=== PATIENT | male | born 1950 | race Caucasian/White ===

== ENCOUNTER → 2017-04-28 | Outpatient (CLI) | payer MEDICARE, OTHER ==
[~2017-04-28] VITALS: Ht 175.3 cm; Wt 92.0 kg
[~2017-04-28] MED LIST: AMIT25 PO; ARIP1TAB5 PO; BUPR300T PO; CHLORHEXIDINE GLUCONATE 2 % 1 PACK (2 CLOTHS) TOPICAL PRN; DOXA1TAB43 PO; ENAL10TA PO; EPINEPHrine HCL PF/SF (1:1000) 1 MG/ML AMP I-OCULAR ONE; EPINEPHrine-Lidocaine/BSS (PF/SF) 4-120 mg/16 mL OPTH SYR RIGHT EYE ONE; ESCI10TA PO; GABA600T PO; GLYB5TAB3 PO; HYALURONIDASE/LIDOCAINE/BUPIVACAINE 5 ML SYR RIGHT EYE ONE; HYDR-3583 PO; LACTATED RINGER'S 1000 ML IV PRN; LEVO500T8 PO; METF1000 PO; METOPROLOL TARTRATE 25 MG TAB PO PRN; MS C15TA7 PO; POVIDONE IODINE 5% (ANTISEPSIS KIT) 4 APPLICATIONS EACH NARE PRN; PROPOFOL 200 MG/20 ML AMP ONE; SODIUM CHLORID 0.9% 500 ML IV PRN; TOBRAMYCIN/DEXAMETHASONE OPTH OINT 3.5 GM TUBE ONE; TRAZ100T10 PO; VISCOAT OPHT IRRIG SOLN 0.75 ML SYRINGE ONE; ZOCO20TA PO
[2017-04-28] MEDS: TROPICAMIDE 1% OPHT SOLN 15 ML BTL RIGHT EYE SCH ×3 (09:15→09:25)
[2017-04-28] MEDS: PHENYLEPHRINE HCL 10% OPTH SOLN 5 ML BTL RIGHT EYE SCH ×3 (09:15→09:25)
[2017-04-28] MEDS: CYCLOPENTOLATE HCL 1% OPHT SOLN 2 ML BTL RIGHT EYE SCH ×3 (09:15→09:25)
[2017-04-28] MEDS: TETRACAINE 0.5% OPTH SOLN 4 ML BTL RIGHT EYE SCH ×3 (09:15→09:25)
[2017-04-28 09:30] VITALS: PULSE 62
[2017-04-28 09:50] VITALS: PULSE 63
[2017-04-28 10:50] VITALS: BP 155/93; PULSE 60; RESP 16; TEMP 97.4; O2SAT 95
--- NOTE | 2017-04-28 10:52 | PD.OP ---
Operative Report Preoperative Diagnosis: (1) Posterior subcapsular age-related cataract of right eye Postoperative Diagnosis: (1) Pseudophakia of right eye Procedure: phacoemulsification and intraocular lens implant right eye Anesthesia: retrobulbar block, MAC Surgeon: Annita Tena Mat Tester(s): none Operation and Findings: Patient was consented for surgery, given a retrobulbar block by anesthesia, and taken back to the operating room. He was prepped and draped in the usual sterile fashion for ophthalmic surgery. A wire lid speculum was placed in the right eye. A paracentesis incision was created at the 11 o'clock position on the limbus. Vision blue dye and viscoelastic was injected into the anterior chamber. The main incision was created at the 8 o'clock position on the limbus with a 2.4 mm keratome. A continuous curvilinear capsulorrhexis was made on the anterior lens capsule. Hydrodissection was used to separate the lens from the capsule. Phacoemulsification was used to remove the lens nucleus material. Irrigation and aspiration was used to remove the remaining cortical material. The lens implant ([id number]) was placed in the capsular bag. Viscoelastic was removed with irrigation and aspiration. The incisions were irrigated and found to be watertight. Tobradex ointment, a patch, and shield were placed on the right eye. The patient was sent to PACU in stable condition. Annita Tena MD Apr 28, 2017 10:52
== END ==
LOC: PHSDC 08:17
PROVIDERS: ATTEND Ophthalmology
DX: H25.041 Posterior subcapsular polar age-related cataract, right eye (principal); Z96.1 Presence of intraocular lens
CPT/HCPCS: 00142; 66984; J0171; J7040; V2632

== ENCOUNTER 2017-05-09 13:49 | Emergency (ER) | payer MEDICARE, OTHER ==
[~2017-05-09] VITALS: Ht 175.3 cm; Wt 92.0 kg
[~2017-05-09 13:49] MED LIST changes: -AMIT25 PO; -ARIP1TAB5 PO; -CHLORHEXIDINE GLUCONATE 2 % 1 PACK (2 CLOTHS) TOPICAL PRN; -DOXA1TAB43 PO; -EPINEPHrine HCL PF/SF (1:1000) 1 MG/ML AMP I-OCULAR ONE; -EPINEPHrine-Lidocaine/BSS (PF/SF) 4-120 mg/16 mL OPTH SYR RIGHT EYE ONE; -ESCI10TA PO; -GABA600T PO; -HYALURONIDASE/LIDOCAINE/BUPIVACAINE 5 ML SYR RIGHT EYE ONE; -LACTATED RINGER'S 1000 ML IV PRN; -LEVO500T8 PO; -METOPROLOL TARTRATE 25 MG TAB PO PRN; -MS C15TA7 PO; -POVIDONE IODINE 5% (ANTISEPSIS KIT) 4 APPLICATIONS EACH NARE PRN; -PROPOFOL 200 MG/20 ML AMP ONE; -SODIUM CHLORID 0.9% 500 ML IV PRN; -TOBRAMYCIN/DEXAMETHASONE OPTH OINT 3.5 GM TUBE ONE; -VISCOAT OPHT IRRIG SOLN 0.75 ML SYRINGE ONE
[2017-05-09 13:59] VITALS: BP 136/63; PULSE 65; RESP 20; TEMP 98.4; O2SAT 91
[2017-05-09] MEDS ORDERED: SODIUM CHLORIDE 0.9% FLUSH 10 ML FLUSH IV FLUSH PRN (14:30)
[2017-05-09 14:33] VITALS: RESP 20; O2SAT 92
--- NOTE | 2017-05-09 14:42 | PD ---
HPI Chief Complaint: General Weakness Time Seen by Provider: 14:12 Travel History International Travel<30 days: No Contact w/Intl Traveler<30days: No Traveled to known affect area: No History of Present Illness HPI Patient has had a progressive weakness that has been ongoing for the past 3-4 months. Patient complains of increased frequency and urgency and the majority of the time he is unable to even make it to the bathroom before soiling himself , today the patient had a mechanical trip and fall on his way to the bathroom.... This has been discussed at length with Dr. Camacho and Dr. Spears , who are currently evaluating. Patient denies any associated factors such as loss of consciousness, fever, rash, headache, chest pain, back pain, abdominal pain, cough, runny nose or sore throat. Patient denies any alleviating or aggravating factors. Primary care physicians Carol Spears Guard Driver Dr. Jose Antonio camacho urologist No known drug allergy Past medical history significant for TN with stent, hyperlipidemia, bipolar disease, diabetes, hypertension PFSH Past Medical History Anxiety: Yes Depression: Yes Cancer: No Cardiovascular Problems: Yes (TN, STENTS;HYPERLIPIDEMIA) High Cholesterol: Yes Diabetes: Yes Patient Takes Glucophage: Yes Diminished Hearing: No Endocrine: Yes Gastrointestinal Disorders: Yes (GERD) Genitourinary: Yes (BPH) Hepatitis: Yes (B) Hiatal Hernia: No Hypertension: Yes Immune Disorder: No Musculoskeletal: Yes (NECK PAIN, DDD) Neurologic: Yes (NUMBNESS RIGHT FINGERS;TOURETTES SYNDROME) Psychiatric: Yes (DEPRESSION; BIPOLAR;ADHA;) Reproductive: No Respiratory: No Myocardial Infarction: Yes (X2) Thyroid Disease: No Tetanus Vaccination: < 5 Years Influenza Vaccination: No Past Surgical History Abdominal Surgery: Yes (RIGHT ING. HERNIA REP) AICD: No Cardiac Surgery: Yes (2 x Angioplasty STENT X1) Ear Surgery: No Endocrine Surgery: No Eye Surgery: No Genitourinary Surgery: No Joint Replacement: No Oral Surgery: Yes (T & A) Pacemaker: No Thoracic Surgery: No Tonsillectomy: Yes Other Surgery: Yes (Hernia Surgery) Social History Alcohol Use: No Tobacco Use: Yes (02/25 PPD) Substance Use: No (HX HEROIN USE) Allergies-Medications (Allergen,Severity, Reaction): Coded Allergies: Influenza Virus Vaccines (Unverified Allergy, Unknown, 04/28/17) Reported Meds & Prescriptions Reported Meds & Active Scripts Active Reported Trazodone (Trazodone HCl) 100 Mg Tablet 100 Mg PO HS Glyburide 5 Mg Tab 5 Mg PO DAILY Take with meals at the same time each day Hydrocodone-Acetamin 10-325 mg (Hydrocodone/Acetaminophen) 10 Mg-325 Mg Tablet 1 Tab PO Q6HR Zocor (Simvastatin) 20 Mg Tab 20 Mg PO DAILY Metformin (Metformin HCl) 1,000 Mg Tab 1,000 Mg PO DAILY With a meal Bupropion HCl ER 24 HR (Bupropion HCl) 300 Mg Tab 300 Mg PO DAILY Enalapril (Enalapril Maleate) 10 Mg Tab 10 Mg PO DAILY Review of Systems General / Constitutional: No: Fever Eyes: No: Visual changes HENT: No: Headaches Cardiovascular: No: Chest Pain or Discomfort Respiratory: No: Shortness of Breath Gastrointestinal: No: Abdominal Pain Genitourinary: Positive: Frequency, Nocturia Musculoskeletal: No: Pain Skin: No Rash Neurologic: Positive: Weakness (Generalized) Psychiatric: No: Depression Endocrine: No: Polydipsia Hematologic/Lymphatic: No: Easy Bruising Physical Exam Narrative GENERAL: SKIN: Warm and dry. HEAD: Atraumatic. Normocephalic. EYES: Pupils equal and round. No scleral icterus. No injection or drainage. ENT: No nasal bleeding or discharge. Mucous membranes pink and moist. NECK: Trachea midline. No JVD. CARDIOVASCULAR: Regular rate and rhythm. RESPIRATORY: No accessory muscle use. Clear to auscultation. Breath sounds equal bilaterally. GASTROINTESTINAL: Abdomen soft, non-tender, nondistended. MUSCULOSKELETAL: Extremities without clubbing, cyanosis, or edema. No obvious deformities. NEUROLOGICAL: Awake and alert. No obvious cranial nerve deficits. Motor grossly within normal limits. Five out of 5 muscle strength in the arms and legs. Normal speech. PSYCHIATRIC: Appropriate mood and affect; insight and judgment normal. Data Data Last Documented VS Vital Signs Date Time Temp Pulse Resp B/P (MAP) Pulse Ox O2 Delivery O2 Flow Rate FiO2 05/09/17 18:20 54 20 137/72 (93) 95 05/09/17 16:10 Room Air 05/09/17 13:59 98.4 Orders Orders Electrocardiogram (05/09/17 14:30) Complete Blood Count With Diff (05/09/17 14:30) Comprehensive Metabolic Panel (05/09/17 14:30) Prothrombin Time / Inr (Pt) (05/09/17 14:30) Act Partial Throm Time (Ptt) (05/09/17 14:30) Troponin I (05/09/17 14:30) Thyroid Stimulating Hormone (05/09/17 14:30) Chest, Single Ap (05/09/17 14:30) Ct Brain W/O Iv Contrast(Rout) (05/09/17 14:30) Blood Glucose (05/09/17 14:30) Ecg Monitoring (05/09/17 14:30) Iv Access Insert/Monitor (05/09/17 14:30) Oximetry (05/09/17 14:30) Sodium Chloride 0.9% Flush (Ns Flush) (05/09/17 14:30) Alcohol (Ethanol) (05/09/17 14:30) Tylenol (Acetaminophen) (05/09/17 14:30) Salicylates (Aspirin) (05/09/17 14:30) Ed Discharge Order (05/09/17 17:02) Labs Laboratory Tests Test 05/09/17 14:30 White Blood Count 7.9 TH/MM3 Red Blood Count 4.34 MIL/MM3 Hemoglobin 13.7 GM/DL Hematocrit 39.2 % Mean Corpuscular Volume 90.2 FL Mean Corpuscular Hemoglobin 31.5 PG Mean Corpuscular Hemoglobin Concent 34.9 % Red Cell Distribution Width 13.9 % Platelet Count 142 TH/MM3 Mean Platelet Volume 8.8 FL Neutrophils (%) (Auto) 70.5 % Lymphocytes (%) (Auto) 17.2 % Monocytes (%) (Auto) 7.9 % Eosinophils (%) (Auto) 3.8 % Basophils (%) (Auto) 0.6 % Neutrophils # (Auto) 5.6 TH/MM3 Lymphocytes # (Auto) 1.4 TH/MM3 Monocytes # (Auto) 0.6 TH/MM3 Eosinophils # (Auto) 0.3 TH/MM3 Basophils # (Auto) 0.0 TH/MM3 CBC Comment DIFF FINAL Differential Comment Prothrombin Time 9.8 SEC Prothromb Time International Ratio 1.0 RATIO Activated Partial Thromboplast Time 26.0 SEC Blood Urea Nitrogen 14 MG/DL Creatinine 1.01 MG/DL Random Glucose 230 MG/DL Total Protein 6.9 GM/DL Albumin 3.3 GM/DL Calcium Level 8.9 MG/DL Alkaline Phosphatase 52 U/L Aspartate Amino Transf (AST/SGOT) 27 U/L Alanine Aminotransferase (ALT/SGPT) 31 U/L Total Bilirubin 0.3 MG/DL Sodium Level 137 MEQ/L Potassium Level 4.6 MEQ/L Chloride Level 101 MEQ/L Carbon Dioxide Level 26.1 MEQ/L Anion Gap 10 MEQ/L Estimat Glomerular Filtration Rate 74 ML/MIN Troponin I LESS THAN 0.02 NG/ML Thyroid Stimulating Hormone 3rd Gen 1.370 uIU/ML Salicylates Level LESS THAN 1.7 MG/DL Acetaminophen Level LESS THAN 2.0 MCG/ML Ethyl Alcohol Level LESS THAN 3 MG/DL MDM Medical Decision Making Medical Screen Exam Complete: Yes Emergency Medical Condition: Yes Medical Record Reviewed: Yes Interpretation(s) EKG shows motion artifact, normal sinus rhythm, 60 bpm, normal intervals, and no evidence of any STEMI pattern. Differential Diagnosis UTI versus anemia versus dehydration versus electrolyte imbalance versus atypical TN Narrative Course CBC has no evidence of any leukocytosis, anemia, or any abnormal platelet count. CMP is within normal limits and without any evidence of electrolyte electrolyte abnormalities. Normal kidney/liver/pancreas function Coagulation profile is within normal limits After 2-1/2 hours in the emergency department the patient has not provided any urine sample for urinalysis. The patient will be asked to submit a urine sample for testing however will await culture results before treating. Diagnosis Primary Impression: Urinary frequency Patient Instructions: General Instructions, Urinary Incontinence (ED) Additional Instructions: please see dr camacho for further treatment and care. Disposition: 01 DISCHARGE HOME Condition: Stable Gregory Gonzalez MD May 09, 2017 14:42
--- NOTE | 2017-05-09 14:47 | RADRPT ---
EXAM DATE/TIME: 05/09/2017 14:36 [facility] COMPARISON: No previous studies available for comparison. INDICATIONS : Syncope MEDICAL HISTORY : Cardiovascular disease. SURGICAL HISTORY : Coronary artery stent. Fusion, cervical. ENCOUNTER: Initial ACUITY: 1 day PAIN SCORE: 0/10 LOCATION: chest FINDINGS: A single view of the chest demonstrates the lungs to be symmetrically aerated without evidence of mas s, infiltrate or effusion. The cardiomediastinal contours are unremarkable. Osseous structures are intact. Cervical fusion hardware identified within the lower cervical spine. CONCLUSION: No acute disease. Gina Gee MD on May 09, 2017 at 14:44 Board Certified Radiologist. This report was verified electronically.
[2017-05-09 15:20] LABS: AUTOMATED NEUTROPHIL # 5.6 TH/MM3 (1.8-7.7); BASOPHIL % 0.6 % (0.0-2.0); EOSINOPHIL # 0.3 TH/MM3 (0-0.4); EOSINOPHIL % 3.8 % (0.0-4.0); HEMATOCRIT 39.2 % (39.0-51.0); HEMOGLOBIN 13.7 GM/DL (13.0-17.0); LYMPH % 17.2 % (9.0-44.0); LYMPHOCYTE # 1.4 TH/MM3 (1.0-4.8); MEAN CELL VOLUME 90.2 FL (80.0-100.0); MEAN CORPUSCULAR HEMOGLOBIN 31.5 PG (27.0-34.0); MEAN CORPUSCULAR HGB CONC 34.9 % (32.0-36.0); MEAN PLATELET VOLUME 8.8 FL (7.0-11.0); MONO % 7.9 % (0.0-8.0); MONOCYTE # 0.6 TH/MM3 (0-0.9); NEUT % 70.5 % (16.0-70.0); PLATELET COUNT 142 TH/MM3 (150-450); RED BLOOD COUNT 4.34 MIL/MM3 (4.50-5.90); RED CELL DISTRIBUTION WIDTH 13.9 % (11.6-17.2); WHITE BLOOD COUNT 7.9 TH/MM3 (4.0-11.0)
--- NOTE | 2017-05-09 15:24 | RADRPT ---
EXAM DATE/TIME: 05/09/2017 15:01 [facility] COMPARISON: No previous studies available for comparison. INDICATIONS : Dizziness and unsteady gait today. RADIATION DOSE: 47.21 CTDIvol (mGy) MEDICAL HISTORY : Myocardial infarction. Hepatitis B. Hypertension.diabetes SURGICAL HISTORY : Angioplasty. ENCOUNTER: Initial ACUITY: 1 day PAIN SCALE: 0/10 LOCATION: Bilateral head TECHNIQUE: Multiple contiguous axial images were obtained of the head. Using automated exposure control and adj ustment of the mA and/or kV according to patient size, radiation dose was kept as low as reasonably a chievable to obtain optimal diagnostic quality images. DICOM format image data is available electro nically for review and comparison. FINDINGS: CEREBRUM: The ventricles are normal for age. No evidence of midline shift, mass lesion, hemorrhage or acute in farction. No extra-axial fluid collections are seen. POSTERIOR FOSSA: The cerebellum and brainstem are intact. The 4th ventricle is midline. The cerebellopontine angle i s unremarkable. EXTRACRANIAL: The visualized portion of the orbits is intact. SKULL: The calvaria is intact. No evidence of skull fracture. CONCLUSION: 1. No acute intercranial abnormality identified. Nilson Escobar MD on May 09, 2017 at 15:20 Board Certified Radiologist. This report was verified electronically.
[2017-05-09 15:29] LABS: PROTHROMBIN TIME - PATIENT 9.8 SEC (9.8-11.6)
[2017-05-09 15:37] LABS: ALKALINE PHOSPHATASE 52 U/L (45-117); ALT (GPT) 31 U/L (12-78); TOTAL BILIRUBIN ADULT 0.3 MG/DL (0.2-1.0); TOTAL PROTEIN 6.9 GM/DL (6.4-8.2); TROPONIN I LESS THAN 0.02 NG/ML (0.02-0.05)
[2017-05-09 15:44] LABS: ALBUMIN 3.3 GM/DL (3.4-5.0); AST (GOT) 27 U/L (15-37); BICARBONATE 26.1 MEQ/L (21.0-32.0); BLOOD UREA NITROGEN 14 MG/DL (7-18); CALCIUM 8.9 MG/DL (8.5-10.1); CHLORIDE 101 MEQ/L (98-107); CREATININE 1.01 MG/DL (0.60-1.30); GLOMERULAR FILTRATION RATE 74 ML/MIN (>89); GLUCOSE,RANDOM 230 MG/DL (74-106); SODIUM (NA) 137 MEQ/L (136-145)
[2017-05-09 15:45] LABS: ACETAMINOPHEN LESS THAN 2.0 MCG/ML (10.0-30.0)
[2017-05-09 16:10] VITALS: BP 137/66; PULSE 54; RESP 16; O2SAT 98
[2017-05-09 18:20] VITALS: BP 137/72
--- NOTE | 2017-05-10 10:36 | EKG ---
Date Performed: 05/09/2017 Time Performed: 14:46:32 PTAGE: 67 years EKG: ECTOPIC ATRIAL RHYTHM INFERIOR MYOCARDIAL INFARCTION ANTEROSEPTAL MYOCARDIAL INFARCTION ABN ORMAL ECG Compared to PREVIOUS TRACING the patient is now in an ectopic rhythm PREVIOUS TRACIN10/28/2010 11 .29 DOCTOR: Paola Dubon Interpretating Date/Time 05/10/2017 10:34:58
== END 2017-05-09 18:21 | disposition home or self-care (01) ==
LOC: NEPD 13:49
DX: N40.1 Benign prostatic hyperplasia with lower urinary tract symptoms (principal); R35.0 Frequency of micturition; E11.9 Type 2 diabetes mellitus without complications; E78.5 Hyperlipidemia, unspecified; F17.200 Nicotine dependence, unspecified, uncomplicated; I10 Essential (primary) hypertension; I25.2 Old myocardial infarction; R94.31 Abnormal electrocardiogram [ECG] [EKG]; Z79.84 Long term (current) use of oral hypoglycemic drugs; Z79.899 Other long term (current) drug therapy
CPT/HCPCS: 70450; 71045; 80053; 80307; 84443; 84484; 85025; 85610; 85730; 93005; 99285

== ENCOUNTER → 2017-06-21 | Outpatient (CLI) | payer MEDICARE, OTHER ==
[~2017-06-21] MED LIST changes: +BUPR150CR PO
[2017-06-21 09:36] LABS: AUTOMATED NEUTROPHIL # 4.7 TH/MM3 (1.8-7.7); BASOPHIL % 0.6 % (0.0-2.0); EOSINOPHIL # 0.3 TH/MM3 (0-0.4); EOSINOPHIL % 4.1 % (0.0-4.0); HEMOGLOBIN 14.9 GM/DL (13.0-17.0); LYMPH % 21.4 % (9.0-44.0); LYMPHOCYTE # 1.5 TH/MM3 (1.0-4.8); MEAN CELL VOLUME 91.2 FL (80.0-100.0); MEAN CORPUSCULAR HEMOGLOBIN 31.7 PG (27.0-34.0); MEAN CORPUSCULAR HGB CONC 34.7 % (32.0-36.0); MEAN PLATELET VOLUME 8.4 FL (7.0-11.0); MONO % 8.1 % (0.0-8.0); MONOCYTE # 0.6 TH/MM3 (0-0.9); NEUT % 65.8 % (16.0-70.0); PLATELET COUNT 149 TH/MM3 (150-450); RED BLOOD COUNT 4.72 MIL/MM3 (4.50-5.90); RED CELL DISTRIBUTION WIDTH 13.9 % (11.6-17.2); WHITE BLOOD COUNT 7.1 TH/MM3 (4.0-11.0)
[2017-06-21 09:44] LABS: PROTHROMBIN TIME - PATIENT 10.3 SEC (9.8-11.6)
[2017-06-21 10:02] LABS: BICARBONATE 27.1 MEQ/L (21.0-32.0); CALCIUM 9.6 MG/DL (8.5-10.1); CREATININE 1.13 MG/DL (0.60-1.30)
--- NOTE | 2017-06-21 10:44 | RADRPT ---
EXAM DATE/TIME: 06/21/2017 10:27 [facility] COMPARISON: No previous studies available for comparison. INDICATIONS : Evaluate for pneumonia, pneumothorax and communicable diseases. Pre-op for shunt placement. MEDICAL HISTORY : Cardiovascular disease. SURGICAL HISTORY : Coronary artery stent. Fusion, cervical. ENCOUNTER: Initial ACUITY: 1 day PAIN SCORE: 0/10 LOCATION: Bilateral chest FINDINGS: PA and lateral views of the chest demonstrate the lungs to be symmetrically aerated without evidence of mass, infiltrate or effusion. The cardiomediastinal contours are unremarkable. Osseous structure s are intact. CONCLUSION: No acute cardiopulmonary disease. Dirk Cornelius MD on June 21, 2017 at 10:42 Board Certified Radiologist. This report was verified electronically.
[2017-06-21 10:46] LABS: BILIRUBIN, URINE NEG (NEG); BLOOD, URINE NEG (NEG); GLUCOSE,URINE NEG (NEG); HYALINE CAST, URINE 2 /lpf (RARE); KETONE, URINE NEG (NEG); MUCUS URINE FEW /lpf (OCC); NITRITE,URINE NEG (NEG); PH, URINE 5.5 (5.0-8.5); URINE COLOR YELLOW (YELLW/STRAW); URINE LEUKOCYTE ESTERASE NEG (NEG)
--- NOTE | 2017-06-21 20:40 | EKG ---
Date Performed: 06/21/2017 Time Performed: 09:21:27 PTAGE: 67 years EKG: ECTOPIC ATRIAL BRADYCARDIA INFERIOR MYOCARDIAL INFARCTION, PROBABLY OLD ANTEROSEPTAL MYOCAR DIAL INFARCTION, OF INDETERMINATE AGE ABNORMAL ECG NO PREVIOUS TRACING DOCTOR: Karthik Morgan Interpretating Date/Time 06/21/2017 20:39:51
== END ==
LOC: CPRE 08:15
PROVIDERS: ATTEND Neurological Surgery
DX: Z01.812 Encounter for preprocedural laboratory examination (principal); Z01.811 Encounter for preprocedural respiratory examination; Z01.810 Encounter for preprocedural cardiovascular examination; Z01.89 Encounter for other specified special examinations; R94.31 Abnormal electrocardiogram [ECG] [EKG]
CPT/HCPCS: 36415; 71046; 80048; 81001; 85025; 85610; 85730; 93005

== ENCOUNTER 2017-07-27 14:36 | Observation (INO) | payer MEDICARE, OTHER ==
[~2017-07-27] VITALS: Ht 175.3 cm; Wt 87.4 kg
[~2017-07-27 14:36] MED LIST changes: -BUPR300T PO
[2017-07-27 14:47] VITALS: BP 157/79; PULSE 67; RESP 16; TEMP 98.5; O2SAT 95
--- NOTE | 2017-07-27 14:57 | PD ---
HPI Chief Complaint: Hypertension Time Seen by Provider: 14:56 Travel History International Travel<30 days: No Contact w/Intl Traveler<30days: No Traveled to known affect area: No History of Present Illness HPI 67-year-old male came to the emergency room with history of confusion yesterday. The is giving the history of his confusion state yesterday since patient says he does not recall much of it. says it started in the morning and stayed till 8:30 PM when he went to bed and slept all night. When he woke up this morning at 9:30 AM he seemed more with it although he still appears to be little bit confused as per the and the neighbor. Patient had a BULK INTAKE WORKER shunt put in 1 month ago. The neurosurgeon is Dr. Wilson. They called his office this morning and this afternoon when they heard back from the nurse they were asked to come to the emergency room. says that his blood pressure was running a little bit high at 170s systolic. No history of vomiting or diarrhea. No history of fever or chills. Patient's vital signs are stable in the triage here. Currently patient is awake and answering questions appropriately. Patient denies of any headache. PFSH Past Medical History Narrative Medical List of his past medical, surgical, social and family history is reviewed from the nursing note Anxiety: Yes Depression: Yes Cancer: No Cardiovascular Problems: Yes High Cholesterol: Yes Diabetes: Yes Diminished Hearing: No Endocrine: Yes Gastrointestinal Disorders: Yes (GERD) Genitourinary: Yes (BPH) Hepatitis: Yes (B) Hiatal Hernia: No Hypertension: Yes Immune Disorder: No Musculoskeletal: Yes (NECK PAIN, DDD) Neurologic: Yes (NUMBNESS RIGHT FINGERS) Psychiatric: Yes (BIPOLAR) Reproductive: No Respiratory: No Myocardial Infarction: Yes (X2) Thyroid Disease: No Past Surgical History Abdominal Surgery: Yes (RIGHT INGUINAL HERNIA REPAIR) AICD: No Body Medical Devices: CARDIAC STENT, Cardiac Surgery: Yes (ANGIOPLASTY/ STENT X1) Ear Surgery: No Endocrine Surgery: No Eye Surgery: Yes (CATARACT R EYE) Genitourinary Surgery: No Joint Replacement: No Oral Surgery: Yes (T & A) Pacemaker: No Thoracic Surgery: No Tonsillectomy: Yes Other Surgery: Yes (Hernia Surgery) Social History Alcohol Use: No Tobacco Use: Yes (02/25 PPD) Substance Use: No Allergies-Medications (Allergen,Severity, Reaction): Coded Allergies: Influenza Virus Vaccines (Unverified Allergy, Unknown, 06/24/17) Comments List of his allergies reviewed from the nursing note Reported Meds & Prescriptions Reported Meds & Active Scripts Active Hydrocodone-Acetamin 10-325 mg (Hydrocodone/Acetaminophen) 10 Mg-325 Mg Tablet 1 Tab PO Q6HR Reported Wellbutrin SR 12 HR (Bupropion HCl) 150 Mg Tab 150 Mg PO Q12HR Trazodone (Trazodone HCl) 100 Mg Tablet 200 Mg PO HS Glyburide 5 Mg Tab 5 Mg PO DAILY Take with meals at the same time each day Zocor (Simvastatin) 20 Mg Tab 20 Mg PO DAILY Metformin (Metformin HCl) 1,000 Mg Tab 1,000 Mg PO DAILY With a meal Enalapril (Enalapril Maleate) 10 Mg Tab 10 Mg PO DAILY Narrative Medication List of his home medications reviewed from the nursing note Review of Systems Except as stated in HPI: all other systems reviewed are Neg Physical Exam Narrative GENERAL: Awake, alert, no obvious distress SKIN: Focused skin assessment warm/dry. Patient still has stitches and staple on the right parietotemporal area where the shunt is. This scalp skin appears to be healed and healthy. HEAD: Atraumatic. Normocephalic. EYES: Pupils equal and round. No scleral icterus. No injection or drainage. ENT: No nasal bleeding or discharge. Mucous membranes pink and moist. NECK: Trachea midline. No JVD. No neck rigidity or meningismus CARDIOVASCULAR: Regular rate and rhythm. No murmur appreciated. RESPIRATORY: No accessory muscle use. Clear to auscultation. Breath sounds equal bilaterally. GASTROINTESTINAL: Abdomen soft, non-tender, nondistended. Hepatic and splenic margins not palpable. MUSCULOSKELETAL: No obvious deformities. No clubbing. No cyanosis. No edema. NEUROLOGICAL: Awake and alert. No obvious cranial nerve deficits. Motor grossly within normal limits. Normal speech. PSYCHIATRIC: Appropriate mood and affect; insight and judgment normal. Data Data Last Documented VS Orders Orders Complete Blood Count With Diff (07/27/17 15:06) Basic Metabolic Panel (Bmp) (07/27/17 15:06) Blood Culture (07/27/17 15:06) Urinalysis - C+S If Indicated (07/27/17 15:06) Ct Brain W/O Iv Contrast(Rout) (07/27/17 ) Shunt Series (07/27/17 ) Admit Order (Ed Use Only) (07/27/17 ) Labs Laboratory Tests Test 07/27/17 15:50 07/27/17 17:50 White Blood Count 5.4 TH/MM3 Red Blood Count 4.40 MIL/MM3 Hemoglobin 13.6 GM/DL Hematocrit 39.8 % Mean Corpuscular Volume 90.5 FL Mean Corpuscular Hemoglobin 31.0 PG Mean Corpuscular Hemoglobin Concent 34.3 % Red Cell Distribution Width 13.4 % Platelet Count 146 TH/MM3 Mean Platelet Volume 8.2 FL Neutrophils (%) (Auto) 61.2 % Lymphocytes (%) (Auto) 23.2 % Monocytes (%) (Auto) 10.5 % Eosinophils (%) (Auto) 4.3 % Basophils (%) (Auto) 0.8 % Neutrophils # (Auto) 3.3 TH/MM3 Lymphocytes # (Auto) 1.3 TH/MM3 Monocytes # (Auto) 0.6 TH/MM3 Eosinophils # (Auto) 0.2 TH/MM3 Basophils # (Auto) 0.0 TH/MM3 CBC Comment DIFF FINAL Differential Comment Blood Urea Nitrogen 20 MG/DL Creatinine 0.91 MG/DL Random Glucose 155 MG/DL Calcium Level 9.6 MG/DL Sodium Level 139 MEQ/L Potassium Level 4.1 MEQ/L Chloride Level 102 MEQ/L Carbon Dioxide Level 26.3 MEQ/L Anion Gap 11 MEQ/L Estimat Glomerular Filtration Rate 83 ML/MIN Hemoglobin A1c 8.2 % Urine Color YELLOW Urine Turbidity CLOUDY Urine pH 8.0 Urine Specific [place] 1.021 Urine Protein 30 mg/dL Urine Glucose (UA) 150 mg/dL Urine Ketones NEG mg/dL Urine Occult Blood NEG Urine Nitrite NEG Urine Bilirubin NEG Urine Urobilinogen LESS THAN 2.0 MG/DL Urine Leukocyte Esterase NEG Urine RBC 2 /hpf Urine Amorphous Sediment FEW Microscopic Urinalysis Comment CULT NOT INDICATED MDM Medical Decision Making Medical Screen Exam Complete: Yes Emergency Medical Condition: Yes Medical Record Reviewed: Yes Differential Diagnosis UTI, sepsis, shunt infection, raised intracranial pressure Narrative Course 5:[address] scan and shunt series are within normal limit. Blood test results are back and within acceptable limit. I put a call out for the neurosurgeon Dr. Wilson to discuss the case with him. I was told he is in the OR. Case has been signed over to the oncoming ER physician . Procedures EKG Prior to Arrival: Jagdish Ramsey MD Jul 27, 2017 14:57
--- NOTE | 2017-07-27 15:44 | RADRPT ---
EXAM DATE: 07/27/2017 3:36 PM EDT AGE/SEX: 67 years / Male INDICATIONS: Hypertension, altered mental status. CLINICAL DATA: This is the patient's initial encounter. Patient reports that signs and symptoms have been present for 1 day and indicates a pain score of 2/10. MEDICAL/SURGICAL HISTORY: Hypertension. Diabetes. . Recent shunt placement. RADIATION DOSE: 56.35 CTDI (mGy) COMPARISON: [facility] [place] BRAIN W/O CONTRAST, 06/25/2017. . TECHNIQUE: CT of the head without contrast. Using automated exposure control and adjustment of the mA and/or kV according to patient size, radiation dose was kept as low as reasonably achievable to ob tain optimal diagnostic quality images. FINDINGS: Cerebrum: The ventricles are normal for age. No evidence of midline shift, mass lesion, hemorrhage or acute infarction. No extraaxial fluid collections are seen. Right frontal ventriculostomy cathete r in good position. Lateral ventricles are mildly prominent unchanged from previous study Posterior Fossa: The cerebellum and brainstem are intact. The 4th ventricle is midline. The cerebe llopontine angle is unremarkable. Extracranial: The visualized portion of the orbits is intact. Skull: The calvaria is intact. No evidence of skull fracture. CONCLUSION: 1. Ventriculostomy catheter otherwise unremarkable noncontrast head CT. Electronically signed by: Delfino Francisco MD 07/27/2017 3:43 PM EDT
[2017-07-27 16:18] LABS: AUTOMATED NEUTROPHIL # 3.3 TH/MM3 (1.8-7.7); BASOPHIL % 0.8 % (0.0-2.0); EOSINOPHIL # 0.2 TH/MM3 (0-0.4); EOSINOPHIL % 4.3 % (0.0-4.0); HEMATOCRIT 39.8 % (39.0-51.0); HEMOGLOBIN 13.6 GM/DL (13.0-17.0); LYMPH % 23.2 % (9.0-44.0); LYMPHOCYTE # 1.3 TH/MM3 (1.0-4.8); MEAN CELL VOLUME 90.5 FL (80.0-100.0); MEAN CORPUSCULAR HGB CONC 34.3 % (32.0-36.0); MEAN PLATELET VOLUME 8.2 FL (7.0-11.0); MONO % 10.5 % (0.0-8.0); MONOCYTE # 0.6 TH/MM3 (0-0.9); NEUT % 61.2 % (16.0-70.0); PLATELET COUNT 146 TH/MM3 (150-450); RED CELL DISTRIBUTION WIDTH 13.4 % (11.6-17.2); WHITE BLOOD COUNT 5.4 TH/MM3 (4.0-11.0)
--- NOTE | 2017-07-27 16:23 | RADRPT ---
EXAM DATE: 07/27/2017 4:19 PM EDT AGE/SEX: 67 years / Male INDICATIONS: Headaches, evaluate shunt placement. CLINICAL DATA: This is the patient's initial encounter. Patient reports that signs and symptoms have been present for 1 week and indicates a pain score of 0/10. MEDICAL/SURGICAL HISTORY: . Hydrocephalus. . Shunt, placed june 24. COMPARISON: No prior [facility] exams available for comparison. FINDINGS: Examination includes two-view skull, two-view C-spine, and frontal views of the chest and abdomen. Ventriculostomy shunt tip is projected in the right lateral ventricle . The alignment of the tubin g with the reservoir is maintained without evidence of separation. The shunt tubing has a normal course through the neck and chest without discontinuity or kink. The shunt tubing is coiled in the abdomen without displacement of the bowel about the distal tip. Pre vious anterior cervical fusion CONCLUSION: Shunt tubing in good position. No complications Electronically signed by: Delfino Francisco MD 07/27/2017 4:22 PM EDT
[2017-07-27 16:40] LABS: BICARBONATE 26.3 MEQ/L (21.0-32.0); CALCIUM 9.6 MG/DL (8.5-10.1); CREATININE 0.91 MG/DL (0.60-1.30)
[2017-07-27 18:19] LABS: AMORPHOUS SEDIMENT, URINE FEW; BILIRUBIN, URINE NEG (NEG); BLOOD, URINE NEG (NEG); GLUCOSE,URINE 150 mg/dL (NEG); KETONE, URINE NEG (NEG); NITRITE,URINE NEG (NEG); URINE COLOR YELLOW (YELLW/STRAW); URINE LEUKOCYTE ESTERASE NEG (NEG)
[2017-07-27 18:59] VITALS: BP_SYST 168; BP_SYST 90; BP_DIAS 53; BP_DIAS 79; PULSE 65; PULSE 89; RESP 18; O2SAT 98
[2017-07-27] MEDS ORDERED: SODIUM CHLORIDE 0.9% FLUSH 10 ML FLUSH IV FLUSH PRN (20:45)
[2017-07-27] MEDS ORDERED: SENNOSIDES 8.6 MG TAB PO PRN (20:45)
[2017-07-27] MEDS ORDERED: BISACODYL 10 MG SUPP RECTAL PRN (20:45)
[2017-07-27] MEDS ORDERED: GLUCAGON 1 MG/ML VIAL OTHER PRN (20:45)
[2017-07-27] MEDS ORDERED: LACTULOSE SYRUP 20 GM/30 ML CUP PO PRN (20:45)
[2017-07-27] MEDS ORDERED: DEXTROSE 50% IN WATER 50 ML VIAL(D50) IV PUSH PRN (20:45)
[2017-07-27] MEDS ORDERED: MAGNESIUM HYDROXIDE SUSP 30 ML CUP PO PRN (20:45)
[2017-07-27] MEDS ORDERED: NALOXONE HCL 0.4 MG/ML AMP IV PUSH PRN (20:45)
[2017-07-27] MEDS ORDERED: ACETAMINOPHEN 325 MG TAB PO PRN (20:45)
--- NOTE | 2017-07-27 20:49 | HHI.HP ---
HPI Service [facility] Primary Care Physician Carol Gan MD Admission Diagnosis Altered mental status, Delirium vs TIA. Diagnoses: Chief Complaint: Altered mental status Travel History International Travel<30 Days: No Contact w/Intl Traveler <30 Da: No Traveled to Known Affected Are: No History of Present Illness 67-year-old male with a history of a TRANSPORTATION OFFICER shunt placement by Dr. Wilson on June 24, hypertension, diabetes, anxiety, depression, hyperlipidemia, CA, GERD, BPH presented to the ED with confusion, trouble speaking and right-sided weakness. Patient says yesterday his symptoms began when he woke up this morning he continued to be confused. They called Dr. Wilson this morning in the office recommended come to the ER to be evaluated. According to the 's report patient's blood pressure has been elevated over the last few days. Patient denies any associated nausea or vomiting. He states he does get occasional headaches from time to time but it is relieved with Motrin. Denies any chest pain shortness of breath. According to the ER physician who discussed patient with Dr. Wilson would like him admitted for a TIA workup and he will see him in consult. Review of Systems Except as stated in HPI: all other systems reviewed are Neg Past Family Social History Past Medical History Anxiety Depression Hyperlipidemia Diabetes GERD BPH Hypertension Hepatitis B CA Past Surgical History Cardiac stents TRANSPORTATION OFFICER shunt based on June 24, 2017 Right inguinal hernia Reported Medications Reported Meds & Active Scripts Active Hydrocodone-Acetamin 10-325 mg (Hydrocodone/Acetaminophen) 10 Mg-325 Mg Tablet 1 Tab PO Q6HR Reported Wellbutrin SR 12 HR (Bupropion HCl) 150 Mg Tab 150 Mg PO Q12HR Trazodone (Trazodone HCl) 100 Mg Tablet 200 Mg PO HS Glyburide 5 Mg Tab 5 Mg PO DAILY Take with meals at the same time each day Zocor (Simvastatin) 20 Mg Tab 20 Mg PO DAILY Metformin (Metformin HCl) 1,000 Mg Tab 1,000 Mg PO DAILY With a meal Enalapril (Enalapril Maleate) 10 Mg Tab 10 Mg PO DAILY Allergies: Coded Allergies: Influenza Virus Vaccines (Unverified Allergy, Unknown, 06/24/17) Family History Patient denies any family history Social History Tobacco use: A few cigarettes a day Alcohol use denies Physical Exam Vital Signs Vital Signs Date Time Temp Pulse Resp B/P (MAP) Pulse Ox O2 Delivery O2 Flow Rate FiO2 07/27/17 18:59 65 18 168/79 (108) 98 Room Air 07/27/17 15:03 54 96 Room Air 07/27/17 14:47 98.5 67 16 157/79 (105) 95 Physical Exam GENERAL: This is a well-nourished, well-developed patient, in no apparent distress. SKIN: No rashes, ecchymoses or lesions. Cool and dry. HEAD: Atraumatic. Normocephalic. EYES: Pupils equal round and reactive. CARDIOVASCULAR: Regular rate and rhythm without murmurs, gallops, or rubs. RESPIRATORY: Clear to auscultation. Breath sounds equal bilaterally. No wheezes , rales, or rhonchi. GASTROINTESTINAL: Abdomen soft, non-tender, nondistended. MUSCULOSKELETAL: Extremities without clubbing, cyanosis, or edema. No joint tenderness, effusion, or edema noted. No calf tenderness. NEUROLOGICAL: Awake and alert. Right upper extremity weakness, patient states back to normal. Normal speech. Laboratory Laboratory Tests Test 07/27/17 15:50 07/27/17 17:50 White Blood Count 5.4 Red Blood Count 4.40 Hemoglobin 13.6 Hematocrit 39.8 Mean Corpuscular Volume 90.5 Mean Corpuscular Hemoglobin 31.0 Mean Corpuscular Hemoglobin Concent 34.3 Red Cell Distribution Width 13.4 Platelet Count 146 Mean Platelet Volume 8.2 Neutrophils (%) (Auto) 61.2 Lymphocytes (%) (Auto) 23.2 Monocytes (%) (Auto) 10.5 Eosinophils (%) (Auto) 4.3 Basophils (%) (Auto) 0.8 Neutrophils # (Auto) 3.3 Lymphocytes # (Auto) 1.3 Monocytes # (Auto) 0.6 Eosinophils # (Auto) 0.2 Basophils # (Auto) 0.0 CBC Comment DIFF FINAL Differential Comment Blood Urea Nitrogen 20 Creatinine 0.91 Random Glucose 155 Calcium Level 9.6 Sodium Level 139 Potassium Level 4.1 Chloride Level 102 Carbon Dioxide Level 26.3 Anion Gap 11 Estimat Glomerular Filtration Rate 83 Urine Color YELLOW Urine Turbidity CLOUDY Urine pH 8.0 Urine Specific [place] 1.021 Urine Protein 30 Urine Glucose (UA) 150 Urine Ketones NEG Urine Occult Blood NEG Urine Nitrite NEG Urine Bilirubin NEG Urine Urobilinogen LESS THAN 2.0 Urine Leukocyte Esterase NEG Urine RBC 2 Urine Amorphous Sediment FEW Microscopic Urinalysis Comment CULT NOT INDICATED Date/Time Source Procedure Growth Status 07/27/17 15:55 Blood Peripheral Aerobic Blood Culture Pending Received 07/27/17 15:55 Blood Peripheral Anaerobic Blood Culture Pending Received Result Diagram: 07/27/17 1550 07/27/17 1550 Imaging Last Impressions Shunt Study (Imaging) 07/27/17 0000 Signed Impressions: CONCLUSION: Shunt tubing in good position. No complications Head CT 07/27/17 0000 Signed Impressions: CONCLUSION: 1. Ventriculostomy catheter otherwise unremarkable noncontrast head CT. Caprini VTE Risk Assessment Caprini VTE Risk Assessment: Mod/High Risk (score >= 2) Caprini Risk Assessment Model Point Value = 1 Point Value = 2 Point Value = 3 Point Value = 5 Age 41-60 Minor surgery BMI > 25 kg/m2 Swollen legs Varicose veins or History of unexplained or recurrent spontaneous Oral contraceptives or hormone replacement Sepsis (< 1 month) Serious lung disease, including pneumonia (< 1 month) Abnormal pulmonary function Acute myocardial infarction Congestive heart failure (< 1 month) History of inflammatory bowel disease Medical patient at bed rest Age 61-74 Arthroscopic surgery Major open surgery (> 45 min) Laparoscopic surgery (> 45 min) Malignancy Confined to bed (> 72 hours) Immobilizing plaster cast Central venous access Age >= 75 History of VTE Family history of VTE Factor V Leiden Prothrombin [id number] Lupus anticoagulant Anticardiolipin antibodies Elevated serum homocysteine Heparin-induced thrombocytopenia Other congenital or acquired thrombophilia Stroke (< 1 month) Elective arthroplasty Hip, pelvis, or leg fracture Acute spinal cord injury (< 1 month) Prophylaxis Regimen Total Risk Factor Score Risk Level Prophylaxis Regimen 0-1 Low Early ambulation 2 Moderate Order ONE of the following: *Sequential Compression Device (SCD) *Heparin 5000 units SQ BID 3-4 Higher Order ONE of the following medications: *Heparin 5000 units SQ TID *Enoxaparin/Lovenox 40 mg SQ daily (WT < 150 kg, CrCl > 30 mL/min) *Enoxaparin/Lovenox 30 mg SQ daily (WT < 150 kg, CrCl > 10-29 mL/min) *Enoxaparin/Lovenox 30 mg SQ BID (WT < 150 kg, CrCl > 30 mL/min) AND/OR *Sequential Compression Device (SCD) 5 or more Highest Order ONE of the following medications: *Heparin 5000 units SQ TID (Preferred with Epidurals) *Enoxaparin/Lovenox 40 mg SQ daily (WT < 150 kg, CrCl > 30 mL/min) *Enoxaparin/Lovenox 30 mg SQ daily (WT < 150 kg, CrCl > 10-29 mL/min) *Enoxaparin/Lovenox 30 mg SQ BID (WT < 150 kg, CrCl > 30 mL/min) AND *Sequential Compression Device (SCD) Assessment and Plan Assessment and Plan 67-year-old male with a history of a TRANSPORTATION OFFICER shunt placement by Dr. Wilson on June 24, hypertension, diabetes, anxiety, depression, hyperlipidemia, CA, GERD, BPH presented to the ED with confusion, trouble speaking and right-sided weakness. TIA, patient presents with confusion, trouble speaking and right-sided weakness that has currently resolved Head CT reviewed and shows ventriculostomy catheter in place but otherwise negative TRANSPORTATION OFFICER shunt series completed and reviewed and shows shunt tubing in good position no complications -MRI MRI of the brain ordered -Consult Dr. Wilson for recommendations -MRI/MRA ordered -2D echo and carotids ordered -Neuro checks -ST/OT/PT -Lipid profile ordered -Resume home simvastatin Hypertension, chronic -Hold home medications until CVA is ruled out -Allow for permissive hypertension Diabetes, chronic -Accu-Cheks with sliding scale insulin -Diabetic diet -Hold home p.o. medications until patient is eating well DVT prophylaxis: SCDs Discussed Condition With Patient and RN Jenny Carrasco Jul 27, 2017 20:49
[2017-07-27] MEDS: SODIUM CHLORIDE 0.9% FLUSH 10 ML FLUSH IV FLUSH SCH (21:00)
[2017-07-27] MEDS ORDERED: ACETAMINOPHEN/HYDROcodone 325 MG/5 MG TAB PO PRN (21:00)
[2017-07-27 21:56] VITALS: BP 177/86; PULSE 68; RESP 22; TEMP 98.1; O2SAT 96
[2017-07-27] MEDS: buPROPion HCL 150 MG SUSTAINED RELEASE TAB PO SCH (23:14)
[2017-07-27] MEDS: traZODone HCL 100 MG TAB PO SCH (23:14)
[2017-07-27] MEDS: INSULIN ASPART SUPPLEMENTAL SCALE SQ SCH (23:36)
[2017-07-28] VITALS (7 sets, daily range): BP systolic 161–200; BP diastolic 78–110; PULSE 50–66; RESP 16–22; TEMP 97.6–98.5; O2SAT 95–98
[2017-07-28] MEDS: ENALAPRILAT 1.25 MG/ML VIAL IV PUSH PRN ×3 (00:02→17:10)
--- NOTE | 2017-07-28 00:17 | RADRPT ---
EXAM DATE: 07/28/2017 12:05 AM EDT AGE/SEX: 67 years / Male INDICATIONS: Numbness in the fingers of the right hand. Dizziness. CLINICAL DATA: This is the patient's initial encounter. Patient reports that signs and symptoms have been present for 1 day and indicates a pain score of 2/10. MEDICAL/SURGICAL HISTORY: Gastroesophageal reflux disease. Hypertension. Hypercholesterolemia . Inguinal hernia repair. V/P Shunt - 06/24/17. COMPARISON: No prior [facility] exams available for comparison. VELOCITY PARAMETERS: ICA/CCA Ratio: Right 0.69 , Left 1.23 ICA: Right 72 cm/sec, Left 94 cm/sec CCA: Right 103 cm/sec, Left 76 cm/sec ECA: Right 118 cm/sec, Left 104 cm/sec Vertebral: Right 65 cm/sec antegrade, Left 48 cm/sec antegrade FINDINGS: Right Carotid: Mild calcified plaquing at the carotid bifurcation. No significant stenosis is visuali zed. The waveforms are within normal limits. Left Carotid: Mild calcified plaquing at the carotid bifurcation No significant stenosis is visualize d. The waveforms are within normal limits. Other: None. CONCLUSION: 1. Mild calcified plaquing bilaterally. 2. No focal high-grade or hemodynamically significant stenosis. Electronically signed by: Sylvester Perdue MD 07/28/2017 12:16 AM EDT
[2017-07-28] MEDS: buPROPion HCL 150 MG SUSTAINED RELEASE TAB PO SCH ×2 (09:02→21:34)
[2017-07-28] MEDS: PRAVASTATIN SOD 40 MG TAB PO SCH (09:02)
[2017-07-28] MEDS: SODIUM CHLORIDE 0.9% FLUSH 10 ML FLUSH IV FLUSH SCH ×2 (09:03→21:35)
[2017-07-28 09:04] LABS: AUTOMATED NEUTROPHIL # 2.8 TH/MM3 (1.8-7.7); BASOPHIL % 0.7 % (0.0-2.0); EOSINOPHIL # 0.3 TH/MM3 (0-0.4); EOSINOPHIL % 6.2 % (0.0-4.0); HEMATOCRIT 41.8 % (39.0-51.0); HEMOGLOBIN 14.2 GM/DL (13.0-17.0); LYMPHOCYTE # 1.4 TH/MM3 (1.0-4.8); MEAN CELL VOLUME 91.5 FL (80.0-100.0); MEAN CORPUSCULAR HEMOGLOBIN 31.1 PG (27.0-34.0); MEAN PLATELET VOLUME 8.8 FL (7.0-11.0); MONO % 9.1 % (0.0-8.0); MONOCYTE # 0.4 TH/MM3 (0-0.9); PLATELET COUNT 149 TH/MM3 (150-450); RED BLOOD COUNT 4.57 MIL/MM3 (4.50-5.90); RED CELL DISTRIBUTION WIDTH 13.8 % (11.6-17.2); WHITE BLOOD COUNT 4.9 TH/MM3 (4.0-11.0)
[2017-07-28 09:13] LABS: BICARBONATE 26.1 MEQ/L (21.0-32.0); CALCIUM 9.1 MG/DL (8.5-10.1); CREATININE 0.93 MG/DL (0.60-1.30)
[2017-07-28 09:17] LABS: CHOLESTEROL/ HDL RATIO 7.58 RATIO; HDL CHOLESTEROL 26.1 MG/DL (40.0-60.0)
[2017-07-28] MEDS: INSULIN ASPART SUPPLEMENTAL SCALE SQ SCH ×4 (11:24→21:34)
--- NOTE | 2017-07-28 16:30 | RADRPT ---
EXAM DATE: 07/28/2017 4:26 PM EDT AGE/SEX: 67 years / Male INDICATIONS: Stroke. Altered mental status. CLINICAL DATA: This is the patient's subsequent encounter. Patient reports that signs and symptoms h ave been present for 2 days and indicates a pain score of 0/10. MEDICAL/SURGICAL HISTORY: Hypertension. Diabetes mellitus type I. Fusion, cervical. Codman pro grammable shunt. COMPARISON: No prior exams available for comparison. TECHNIQUE: 3D [id number] MRA was performed. Source images, multiplanar STS MIP, and 3D volum e MIP reconstructions were reviewed. FINDINGS: There is excellent visualization of the major intracranial arteries out to the second-order branch ve ssels. The patient has variant anatomy with absence of the right A1 segment and a dominant left A1 se gment and anterior communicating artery. There is no evidence for aneurysm, vessel truncation or sten osis, and no evidence for vascular malformation. CONCLUSION: 1. Unremarkable exam. Electronically signed by: Dirk Carlin MD 07/28/2017 4:29 PM EDT
--- NOTE | 2017-07-28 16:40 | RADRPT ---
EXAM DATE: 07/28/2017 4:35 PM EDT AGE/SEX: 67 years / Male INDICATIONS: Stroke. Altered mental status. CLINICAL DATA: This is the patient's subsequent encounter. Patient reports that signs and symptoms h ave been present for 2 days and indicates a pain score of 0/10. MEDICAL/SURGICAL HISTORY: Hypertension. Diabetes mellitus type II. Fusion, cervical. Codman pr ogrammable shunt. COMPARISON: [facility] [place], CT BRAIN W/O CONTRAST, 07/27/2017. . TECHNIQUE: Multiplanar, multisequence examination of the brain was performed without contrast. FINDINGS: Cerebrum: The ventricles are normal for age. No evidence of midline shift, mass lesion, hemorrhage or acute infarction. No extraaxial fluid collections are seen. The pituitary gland and suprasellar cistern are normal in configuration. White Matter: No significant signal abnormalities are seen in the white matter. Posterior Fossa: The cerebellum and brainstem are intact. The 4th ventricle is midline. The cerebel lopontine angle is unremarkable. The cerebellar tonsils are normal in position. Diffusion Imaging: No focal areas of restricted diffusion are seen. No evidence of acute infarction . Extracranial: The visualized portions of the orbits and paranasal sinuses are unremarkable. Surgical clips associated with the right ventriculostomy generates artifact overlying the right parietal bone . Ventriculostomy catheter enters the right lateral ventricle. Tip terminates near the midline. CONCLUSION: 1. No acute intracranial abnormality. Electronically signed by: Dirk Carlin MD 07/28/2017 4:39 PM EDT
[2017-07-28 17:01] LABS: HEMOGLOBIN A1C 8.2 % (4.3-6.0)
--- NOTE | 2017-07-28 17:56 | HHI.PR ---
Subjective Remarks Follow up TIA. Patient has no complaints at this time. He wants to go home. Denies headache, vision changes, numbness/weakness/paresthesias, chest pain, dyspnea. Objective Vitals Vital Signs Date Time Temp Pulse Resp B/P (MAP) Pulse Ox O2 Delivery O2 Flow Rate FiO2 07/28/17 16:54 200/110 (140) 07/28/17 15:54 98.3 60 18 180/86 (117) 95 07/28/17 11:09 98.1 52 16 183/88 (119) 96 07/28/17 08:00 97.6 50 16 186/98 (127) 98 07/28/17 02:05 60 168/78 (108) 07/28/17 00:00 98.4 59 22 195/95 (128) 95 07/27/17 21:56 98.1 68 22 177/86 (116) 96 07/27/17 21:23 07/27/17 18:59 65 18 168/79 (108) 98 Room Air I/O 07/27/17 07/27/17 07/27/17 07/28/17 07/28/17 07/28/17 07:00 15:00 23:00 07:00 15:00 23:00 Intake Total 320 ml Balance 320 ml Intake Oral 320 ml # Voids 2 Result Diagram: 07/28/17 0755 07/28/17 0755 Imaging Last Impressions Head Magnetic Resonance Angiography 07/28/17 0000 Signed Impressions: CONCLUSION: 1. Unremarkable exam. Brain MRI 07/28/17 0000 Signed Impressions: CONCLUSION: 1. No acute intracranial abnormality. Shunt Study (Imaging) 07/27/17 0000 Signed Impressions: CONCLUSION: Shunt tubing in good position. No complications Head CT 07/27/17 Signed Impressions: CONCLUSION: 1. Ventriculostomy catheter otherwise unremarkable noncontrast head CT. Carotid Artery Ultrasound 07/27/17 Signed Impressions: CONCLUSION: 1. Mild calcified plaquing bilaterally. 2. No focal high-grade or hemodynamically significant stenosis. Objective Remarks Gen: NAD HEENT: Scalp wound well healed with sutures in place. Heart: RRR Lungs: CTA bilaterally Abd: Soft, nontender, nondistended Ext: No lower extremity edema. Psych: Alert and oriented. Neuro: Speech is normal. Procedures None Urinary Catheter: No Vascular Central Line Catheter: No A/P Assessment and Plan 1. TIA: Symptoms have resolved. Neurosurgery consult is pending. Echocardiogram is pending. CT head and MRI/MRI brain are negative. Carotid artery ultrasound is negative. PT/ST/OT. Continue statin. 2. Hypertension: BP is elevated. Resume enalapril. Vasotec as needed. 3. Diabetes mellitus: Monitor Accu-checks and cover with sliding scale insulin. Diabetic diet. Restart Glyburide. 4. DVT prophylaxis: SCDs. Discharge Planning Pending further workup (neurosurgery evaluation, echocardiogram). Wes Turcios MD Jul 28, 2017 17:56
--- NOTE | 2017-07-28 19:37 | PD.CONS ---
History of Present Illness Service Neurosurgery Consult Requested By Medicine service Reason for Consult Mental status changes Primary Care Physician Carol Gan MD Diagnoses: History of Present Illness 67-year-old male status post ventriculoperitoneal shunt 06/24/2017 for NPH. Awoke yesterday morning with confusion, gait difficulty, speech difficulty, mild right hemiparesis. No significant headache, nausea, vomiting, fevers, chills. Patient seen in the emergency room and admitted for observation and MRI brain due to possibility of TIA. Patient feels better on 07/28/2017 with most of symptoms resolved. Review of Systems Constitutional: DENIES: Fatigue, Fever, Dizziness Eyes: DENIES: Blurred vision, Diplopia Cardiovascular: DENIES: Chest pain Gastrointestinal: DENIES: Abdominal pain, Nausea Musculoskeletal: DENIES: Joint pain, Muscle aches Hematologic/lymphatic: DENIES: Bruising Neurologic: COMPLAINS OF: Abnormal gait, DENIES: Headache Psychiatric: COMPLAINS OF: Confusion Past Family Social History Allergies: Coded Allergies: Influenza Virus Vaccines (Unverified Allergy, Unknown, 06/24/17) Physical Exam Vital Signs Vital Signs Date Time Temp Pulse Resp B/P (MAP) Pulse Ox O2 Delivery O2 Flow Rate FiO2 07/28/17 16:54 200/110 (140) 07/28/17 15:54 98.3 60 18 180/86 (117) 95 07/28/17 11:09 98.1 52 16 183/88 (119) 96 07/28/17 08:00 97.6 50 16 186/98 (127) 98 07/28/17 02:05 60 168/78 (108) 07/28/17 00:00 98.4 59 22 195/95 (128) 95 07/27/17 21:56 98.1 68 22 177/86 (116) 96 07/27/17 21:23 Physical Exam GENERAL: This is a well-nourished, well-developed patient, in no apparent distress. SKIN: No rashes, ecchymoses or lesions. Cool and dry. HEAD: right sutures and mohsen in place EYES: Pupils equal round and reactive. Extraocular motions intact. No scleral icterus. No injection or drainage. ENT: Nose without bleeding, purulent drainage or septal hematoma. Throat without erythema, tonsillar hypertrophy or exudate. Uvula midline. Airway patent. NECK: Trachea midline. No JVD or lymphadenopathy. Supple, nontender, no meningeal signs. CARDIOVASCULAR: Regular rate and rhythm without murmurs, gallops, or rubs. RESPIRATORY: Clear to auscultation. Breath sounds equal bilaterally. No wheezes , rales, or rhonchi. GASTROINTESTINAL: Abdomen soft, non-tender, nondistended. No hepato-splenomegaly , or palpable masses. No guarding. MUSCULOSKELETAL: Extremities without clubbing, cyanosis, or edema. No joint tenderness, effusion, or edema noted. No calf tenderness. Negative Homans sign bilaterally. NEUROLOGICAL: Awake and alert. Cranial nerves II through XII intact. Chronic atrophy and weakness right upper extremity. Good strength left upper and lower extremity Ambulates independent Mild confusion Moderate recent and remote memory loss Speech clear Mostly appropriate responses to questions Follow simple commands well Laboratory Laboratory Tests Test 07/28/17 07:55 White Blood Count 4.9 Red Blood Count 4.57 Hemoglobin 14.2 Hematocrit 41.8 Mean Corpuscular Volume 91.5 Mean Corpuscular Hemoglobin 31.1 Mean Corpuscular Hemoglobin Concent 34.0 Red Cell Distribution Width 13.8 Platelet Count 149 Mean Platelet Volume 8.8 Neutrophils (%) (Auto) 56.0 Lymphocytes (%) (Auto) 28.0 Monocytes (%) (Auto) 9.1 Eosinophils (%) (Auto) 6.2 Basophils (%) (Auto) 0.7 Neutrophils # (Auto) 2.8 Lymphocytes # (Auto) 1.4 Monocytes # (Auto) 0.4 Eosinophils # (Auto) 0.3 Basophils # (Auto) 0.0 CBC Comment DIFF FINAL Differential Comment Blood Urea Nitrogen 14 Creatinine 0.93 Random Glucose 236 Calcium Level 9.1 Sodium Level 140 Potassium Level 3.9 Chloride Level 103 Carbon Dioxide Level 26.1 Anion Gap 11 Estimat Glomerular Filtration Rate 81 Triglycerides Level 433 Cholesterol Level 198 LDL Cholesterol HDL Cholesterol 26.1 Cholesterol/HDL Ratio 7.58 Date/Time Source Procedure Growth Status 07/27/17 15:55 Blood Peripheral Aerobic Blood Culture - Preliminary NO GROWTH IN 1 DAY Resulted 07/27/17 15:55 Blood Peripheral Anaerobic Blood Culture - Preliminary NO GROWTH IN 1 DAY Resulted Result Diagram: 07/28/17 0755 07/28/17 0755 Imaging The patient's MRA and MRI of the brain from 07/28/2017 images are reviewed. No evidence of CVA, acute changes. No significant vascular occlusion or other abnormality noted on MRA. Head Magnetic Resonance Angiography 07/28/17 Signed Impressions: CONCLUSION: 1. Unremarkable exam. Brain MRI 07/28/17 Signed Impressions: CONCLUSION: 1. No acute intracranial abnormality. Shunt Study (Imaging) 07/27/17 Signed Impressions: CONCLUSION: Shunt tubing in good position. No complications Head CT 07/27/17 Signed Impressions: CONCLUSION: 1. Ventriculostomy catheter otherwise unremarkable noncontrast head CT. Carotid Artery Ultrasound 07/27/17 Signed Impressions: CONCLUSION: 1. Mild calcified plaquing bilaterally. 2. No focal high-grade or hemodynamically significant stenosis. Assessment and Plan Assessment and Plan Impression: 1. Stable neurologic exam following episode of speech difficulty, confusion, right-sided weakness on 07/27/2017. No evidence of CVA on MRI Plan: Findings discussed with patient Discontinue all remaining sutures and mohsen. Patient canceled the previous postoperative follow-up appointment No neurosurgical intervention planned at this time. No evidence of UTI or other source for mental status changes. The shunt appears to be functioning properly. Shunt valve pressure will be checked for proper functioning. Otherwise stable for discharge home from neurosurgical standpoint with continued outpatient follow-up in the next week. Drew Wilson MD Jul 28, 2017 19:37
[2017-07-28] MEDS: ENALAPRIL MALEATE 10 MG TAB PO SCH (20:12)
[2017-07-28] MEDS: glyBURIDE 5 MG TAB PO SCH (20:12)
--- NOTE | 2017-07-28 20:41 | HHI.DCPOC ---
Discharge Care Plan Your Health Problems Are: Difficulty with ADL Incision/Drains Exercise Tolerance Loss of Movements Goals to Promote Your Health * To prevent worsening of your condition and complications * To maintain your health at the optimal level Directions to Meet Your Goals Take your medications as prescribed Follow your dietary instruction Follow activity as directed Keep your appointments as scheduled Take your immunizations and boosters as scheduled If your symptoms worsen call your PCP, if no PCP go to Urgent Care Center or Emergency Room Smoking is Dangerous to Your Health. Avoid second hand smoke Call the 24-hour hour crisis hotline for domestic abuse at Drew Wilson MD Jul 28, 2017 20:41
--- NOTE | 2017-07-28 20:44 | HHI.DS ---
Discharge Summary Admission Date Jul 27, 2017 at 19:37 Discharge Date: Jul 28, 2017 Admitting Diagnosis Altered mental status, Delirium vs TIA. (1) NPH (normal pressure hydrocephalus) Diagnosis: Principal ICD Code: G91.2 - (Idiopathic) normal pressure hydrocephalus CBC/BMP: 07/28/17 0755 07/28/17 0755 Significant Findings Laboratory Tests Test 07/27/17 15:50 07/27/17 17:50 07/28/17 07:55 Red Blood Count 4.40 MIL/MM3 (4.50-5.90) Platelet Count 146 TH/MM3 (150-450) 149 TH/MM3 (150-450) Monocytes (%) (Auto) 10.5 % (0.0-8.0) 9.1 % (0.0-8.0) Eosinophils (%) (Auto) 4.3 % (0.0-4.0) 6.2 % (0.0-4.0) Blood Urea Nitrogen 20 MG/DL (7-18) Random Glucose 155 MG/DL (74-106) 236 MG/DL (74-106) Estimat Glomerular Filtration Rate 83 ML/MIN (>89) 81 ML/MIN (>89) Hemoglobin A1c 8.2 % (4.3-6.0) Urine Turbidity CLOUDY (CLEAR) Urine Protein 30 mg/dL (NEG-TRACE) Urine Glucose (UA) 150 mg/dL (NEG) Triglycerides Level 433 MG/DL (42-150) HDL Cholesterol 26.1 MG/DL (40.0-60.0) Imaging Last Impressions Head Magnetic Resonance Angiography 07/28/17 0000 Signed Impressions: CONCLUSION: 1. Unremarkable exam. Brain MRI 07/28/17 0000 Signed Impressions: CONCLUSION: 1. No acute intracranial abnormality. Shunt Study (Imaging) 07/27/17 0000 Signed Impressions: CONCLUSION: Shunt tubing in good position. No complications Head CT 07/27/17 0000 Signed Impressions: CONCLUSION: 1. Ventriculostomy catheter otherwise unremarkable noncontrast head CT. Carotid Artery Ultrasound 07/27/17 Signed Impressions: CONCLUSION: 1. Mild calcified plaquing bilaterally. 2. No focal high-grade or hemodynamically significant stenosis. Hospital Course Admitted with acute onset speech deficit, hemiparesis. Symptoms cleared be . Imaging studies of brain negative. Pt Condition on Discharge: Good Discharge Disposition: Discharge Home Discharge Instructions DIET: Follow Instructions for: As Tolerated, No Restrictions ACTIVITIES You can perform: Weight Bearing As Cynthia Activities to Avoid: Lifting/Bending, Strenuous Activity Drew Wilson MD Jul 28, 2017 20:44
[2017-07-28] MEDS: traZODone HCL 100 MG TAB PO SCH (21:34)
[2017-07-29] VITALS (7 sets, daily range): BP systolic 132–196; BP diastolic 74–94; PULSE 47–64; RESP 16–20; TEMP 96.2–99.3; O2SAT 95–97
--- NOTE | 2017-07-29 09:36 | HHI.PR ---
Subjective Remarks Follow-up TIA. The patient has no complaints at this time. Denies headache, vision changes, dizziness, lightheadedness. He denies chest pain or dyspnea. He wants to go home. Objective Vitals Vital Signs Date Time Temp Pulse Resp B/P (MAP) Pulse Ox O2 Delivery O2 Flow Rate FiO2 07/29/17 09:21 98.0 53 16 196/94 (128) 95 07/29/17 04:52 96.2 47 18 132/74 (93) 97 07/29/17 01:10 53 07/29/17 00:48 96.4 51 20 159/92 (114) 97 07/28/17 20:00 98.5 66 20 161/105 (123) 96 07/28/17 16:54 200/110 (140) 07/28/17 15:54 98.3 60 18 180/86 (117) 95 07/28/17 11:09 98.1 52 16 183/88 (119) 96 I/O 07/28/17 07/28/17 07/28/17 07/29/17 07/29/17 07/29/17 07:00 15:00 23:00 07:00 15:00 23:00 Intake Total 320 ml 1600 ml 240 ml Balance 320 ml 1600 ml 240 ml Intake Oral 320 ml 1600 ml 240 ml # Voids 2 4 3 # Bowel Movements 0 Result Diagram: 07/28/17 0755 07/28/17 0755 Imaging Last Impressions Head Magnetic Resonance Angiography 07/28/17 0000 Signed Impressions: CONCLUSION: 1. Unremarkable exam. Brain MRI 07/28/17 0000 Signed Impressions: CONCLUSION: 1. No acute intracranial abnormality. Shunt Study (Imaging) 07/27/17 Signed Impressions: CONCLUSION: Shunt tubing in good position. No complications Head CT 07/27/17 Signed Impressions: CONCLUSION: 1. Ventriculostomy catheter otherwise unremarkable noncontrast head CT. Carotid Artery Ultrasound 07/27/17 Signed Impressions: CONCLUSION: 1. Mild calcified plaquing bilaterally. 2. No focal high-grade or hemodynamically significant stenosis. Objective Remarks General: No acute distress. Heart: Regular rate and rhythm. No murmur. Lungs: Clear to auscultation bilaterally. No wheezes, rales, or rhonchi. Breathing is nonlabored. Abdomen: Soft, nontender, nondistended. Extremities: No lower extremity edema. Psych: Alert and oriented. Neuro: Normal speech. No focal deficits noted. Procedures None Urinary Catheter: No Vascular Central Line Catheter: No A/P Problem List: (1) NPH (normal pressure hydrocephalus) ICD Code: G91.2 - (Idiopathic) normal pressure hydrocephalus Assessment and Plan 1. TIA: Symptoms have resolved. Cleared for discharge by neurosurgery. Echocardiogram is pending. CT head and MRI/MRI brain are negative. Carotid artery ultrasound is negative. PT/ST/OT. Continue statin. 2. Hypertension: BP is improved this morning. Continue enalapril. Vasotec as needed. 3. Diabetes mellitus: Monitor Accu-checks and cover with sliding scale insulin. Diabetic diet. Continue glyburide. 4. DVT prophylaxis: SCDs. Discharge Planning Discharge home today if echocardiogram is unremarkable. Wes Turcios MD Jul 29, 2017 09:36
[2017-07-29] MEDS: buPROPion HCL 150 MG SUSTAINED RELEASE TAB PO SCH (10:00)
[2017-07-29] MEDS: glyBURIDE 5 MG TAB PO SCH (10:01)
[2017-07-29] MEDS: PRAVASTATIN SOD 40 MG TAB PO SCH (10:01)
[2017-07-29] MEDS: ENALAPRIL MALEATE 10 MG TAB PO SCH (10:01)
[2017-07-29] MEDS: SODIUM CHLORIDE 0.9% FLUSH 10 ML FLUSH IV FLUSH SCH (10:02)
[2017-07-29] MEDS: INSULIN ASPART SUPPLEMENTAL SCALE SQ SCH ×3 (10:11→17:00)
--- NOTE | 2017-07-29 16:19 | ECHRPT ---
Indication: CVA/TIA CONCLUSIONS Normal left ventricular size. The left ventricular systolic function is normal with an estimated ejection fraction in the range of 60-65%. Mitral annular calcification is present. Trace mitral valve regurgitation. Aortic valve sclerosis is present. Trace aortic valve regurgitation. The pulmonary valve is not well visualized. BP: / HR: Rhythm: Technical Quality: FINDINGS LEFT VENTRICLE Normal left ventricular size. The left ventricular systolic function is normal with an estimated ejection fraction in the range of 60-65%. RIGHT VENTRICLE Normal right ventricular size and systolic function. LEFT ATRIUM The left atrial size is normal. RIGHT ATRIUM The right atrial size is normal. ATRIAL SEPTUM Normal atrial septal thickness without atrial level shunting by limited color doppler interrogation. AORTA The aortic root and proximal ascending aorta are normal in size on limited imaging. MITRAL VALVE Mitral annular calcification is present. Trace mitral valve regurgitation. AORTIC VALVE Aortic valve sclerosis is present. Trace aortic valve regurgitation. TRICUSPID VALVE Structurally normal tricuspid valve. No tricuspid valve stenosis or regurgitation. PULMONARY VALVE The pulmonary valve is not well visualized. VESSELS The inferior vena cava is normal in size. PERICARDIUM No pericardial effusion. Delfino Torre MD, FACC (Electronically Signed) Final Date:29 July 2017 16:18
== END 2017-07-29 18:42 | disposition home or self-care (01) ==
LOC: NEPD 14:36 → NEDA 19:37 → NEPHCDU 21:36
PROVIDERS: ADMIT Family Medicine; ATTEND Family Medicine
DX: G91.2 (Idiopathic) normal pressure hydrocephalus (principal); G81.91 Hemiplegia, unspecified affecting right dominant side; Z98.2 Presence of cerebrospinal fluid drainage device; E11.9 Type 2 diabetes mellitus without complications; I10 Essential (primary) hypertension; G45.9 Transient cerebral ischemic attack, unspecified; K21.9 Gastro-esophageal reflux disease without esophagitis; E78.00 Pure hypercholesterolemia, unspecified; Z98.1 Arthrodesis status; F41.9 Anxiety disorder, unspecified; N40.0 Benign prostatic hyperplasia without lower urinary tract symptoms; R20.0 Anesthesia of skin; I25.2 Old myocardial infarction; Z72.0 Tobacco use; E78.5 Hyperlipidemia, unspecified
CPT/HCPCS: 70250; 70450; 70544; 70551; 71045; 72040; 74018; 80048; 80061; 81001; 82948; 83036; 85025; 87040; 93306; 93880; 96125; 96372; 96374; 96376; 97162; 97166; 99285; G0378; G8987; G8988; G8989; J1815